=== PATIENT | male | born 1960 ===

== ENCOUNTER → 2022-09-13 07:22 | Outpatient (CLI) | payer OTHER, SELFPAY ==
--- NOTE | ~2022-09-13 | MR_ITS ---
EXAMINATION: MR knee LT wo con DATE: 09/13/2022 08:04 INDICATION: Anterior left knee pain. TECHNIQUE: Magnetic resonance imaging (MRI) of the left knee was performed without intravenous contra st. Sequences included axial PD-weighted FS FSE, coronal PD-weighted FSE and PD-weighted FS FSE, sagi ttal PD-weighted FSE, and sagittal T2-weighted FS FSE. COMPARISON: None. FINDINGS: Medial compartment: There is a complex tear involving body and posterior horn of medial meniscus. There is extensive part ial thickness cartilage loss of tibial condyle. There is full-thickness cartilage loss loss of tibial condyle medially with mild subchondral edema-like marrow signal intensity. There is extensive partia l thickness cartilage loss of femoral condyle, deep at the central articular surface. There is mild s ubchondral edema-like marrow signal intensity. There are subchondral cysts at the posterior articular surface. Osteophytes are noted. Lateral compartment: Lateral meniscus is normal. There is cartilage surface irregularity of tibial condyle and femoral con dyle. Osteophytes are noted. Patellofemoral compartment: There is full-thickness cartilage loss of patellar lateral facet and partial thickness cartilage loss of patellar medial facet with moderate subchondral edema-like marrow signal intensity. There is full -thickness cartilage loss of central and lateral trochlea with subchondral cysts and moderate subchon dral edema-like marrow signal intensity. Osteophytes are noted. Ligaments and tendons: The anterior and posterior cruciate ligaments are normal. There are changes of prior sprains of media l collateral ligament and fibular collateral ligament characterized by thickening and increased signa l intensity proximally. There is mild patellar tendinopathy. Fluid: There is a moderate-sized knee joint effusion. There is a moderate-sized Plasencia's cyst. There is mild prepatellar and superficial infrapatellar bursitis. Osseous/other: There is a 12 mm intraosseous ganglion in proximal tibia near the attachment of posterior cruciate li gament. IMPRESSION: 1. Severe chondrosis of medial and patellofemoral compartments and mild chondrosis of lateral compart ment. 2. Tear of medial meniscus. 3. Moderate-sized knee joint effusion. 4. Moderate-sized Plasencia's cyst. Reviewed, dictated and finalized at location A. [employer] IMPRESSION: 1. Severe chondrosis of medial and patellofemoral compartments and mild chondro sis of lateral compartment. 2. Tear of medial meniscus. 3. Moderate-sized knee joint effusion. 4. Moderate-sized Plasencia's cyst.
== END ==
PROVIDERS: PCP Internal Medicine
DX: M25.462 Effusion, left knee (principal); M71.22 Synovial cyst of popliteal space [Baker], left knee; S83.242A Other tear of medial meniscus, current injury, left knee, initial encounter; X58.XXXA Exposure to other specified factors, initial encounter
CPT/HCPCS: 73721

== ENCOUNTER 2023-07-02 05:52 | Day surgery (SDC) | payer OTHER, SELFPAY ==
[2023-06-12 11:06] VITALS: BMI 27.6
--- NOTE | 2023-07-01 07:48 | WPDANESEPPF ---
Anes - Initial Pre Proc Eval Procedure: Operation Date: 07/02/23 07:30 Proposed Procedures p Screening Colonoscopy - Eric Arellano MD Date/Time: 07/01/23 07:48 Surgeon: Eric Arellano MD Pre Op Diagnosis: Neoplasm Screening Patient Data Age: 62 Gender: M Height: 1.85 m Weight: 95 kg Allergies Allergy/AdvReac Type Severity Reaction Status Date / Time peanut Allergy Unknown Unknown Verified 06/12/23 11:06 Penicillins Allergy Unknown Hives Verified 06/12/23 11:05 Home Medications Medication Instructions Recorded Confirmed Type No Home Medications 06/12/23 06/12/23 History Results Review: All pre-operative results and documents have been reviewed as part of the pre-operative evaluation. [facility] Social History Social History Smoking status: Never smoker Alcohol intake: current Drinks per week: 10 Substance use: never Substance use type: does not use Living arrangements: with family Spiritual care concerns: No Anes - Eval Final PreProcedure Day of Procedure 07/01/23 07:48 Patient weight: overweight Heart: regular rate and rhythm Lungs: clear to auscultation Airway: Mallampati scale class II Neurological: alert and oriented Last oral intake: >/= 8 hours ASA classification: II Emergent: no Anesthetic plan: proceed Anesthesia type and monitoring: general GIVS and standard monitoring Results Review: All pre-operative results and documents have been reviewed as part of the pre-operative evaluation. Informed Consent: The patient's anesthetic plan and its attendant risks and benefits were discussed with the patient/family/POA. Questions were solicited and answers provided to the satisfaction of the patient/family/POA.
--- NOTE | 2023-07-01 12:55 | PM.HPGS ---
History of Present Illness History of Present Illness Consent: Risks, benefits, and alternatives have been discussed and questions answered. Patient agrees to proceed with procedure. Chief complaint: Neoplasm Screening Narrative: Chente Campbell is a 62 year old male Referred for colon cancer screening. Review of Systems Review of Systems: All systems reviewed & are unremarkable except as noted in HPI and below PMFSH Social History Social History Smoking status: Never smoker Alcohol intake: current Drinks per week: 10 Substance use: never Substance use type: does not use Living arrangements: with family Spiritual care concerns: No Meds Home Medications and Allergies Home Medications Medication Instructions Recorded Confirmed Type No Home Medications 06/12/23 07/02/23 History Allergies Allergy/AdvReac Type Severity Reaction Status Date / Time peanut Allergy Unknown Unknown Verified 07/02/23 06:10 Penicillins Allergy Unknown Hives Verified 07/02/23 06:10 Exam Const: General: alert Orientation/consciousness: patient oriented x3 Resp: Auscultation: clear to auscultation bilaterally Cardio: Rhythm: regular rhythm GI: GI Palp: Yes Soft to palpation and No Tenderness to palpation present (GI) Neuro: General: patient oriented x3 Assessment and Plan Assessment and plan (1) Colon cancer screening: Code(s): Z12.11 - Encounter for screening for malignant neoplasm of colon Status: Acute Assessment and Plan: Colonoscopy with possible biopsy or polypectomy or cautery or injection of substances.
[2023-07-02 06:18] VITALS: BP 124/94; PULSE 79; RESP 16; TEMP 36.5; O2SAT 99; BMI 27.6
[2023-07-02] MEDS: LACTATED RINGERS 1,000 ML 150 ML IV CONT (06:37)
[2023-07-02 07:30] VITALS: BP 92/54; PULSE 66; RESP 16; O2SAT 97
[2023-07-02 07:40] VITALS: BP 107/78; PULSE 78; RESP 16; O2SAT 98
[2023-07-02 07:50] VITALS: BP 113/84; PULSE 67; RESP 16; O2SAT 99
--- NOTE | 2023-07-02 08:10 | WPDANESPN ---
Anes - Prog Note Post-Op Date/Time: 07/02/23 08:10 Cardiovascular status: normal Respiratory status: normal Airway patency: baseline Mental status: baseline Post-Op hydration status: normal Vital Signs: Last Vital Signs Temp 36.5 C 07/02/23 06:18 Pulse 67 07/02/23 07:50 Resp 16 07/02/23 07:50 BP 113/84 07/02/23 07:50 Pulse Ox 99 07/02/23 07:50 O2 Del Method Room Air 07/02/23 07:40 Pain Score (VAS): 0 I/O: Intake & Output 07/01/23 07/02/23 07/02/23 23:59 07:59 15:59 Intake Total 500 Balance 500 Patient Feedback: Patient satisfied with anesthetic care.
== END 2023-07-02 07:58 | disposition home or self-care (01) ==
PROVIDERS: PCP Internal Medicine; Visit Provider Internal Medicine Gastroenterology
PROC: 0DJD8ZZ Inspection of Lower Intestinal Tract, Via Natural or Artificial Opening Endoscopic (ICD-10-PCS; CPT 45378; principal; 2023-07-02 07:30)
DX: Z12.11 Encounter for screening for malignant neoplasm of colon (principal); K57.30 Diverticulosis of large intestine without perforation or abscess without bleeding
CPT/HCPCS: 45378